=== PATIENT | female | born 1970 | race Two or more races ===

== ENCOUNTER 2017-10-19 16:59 | Emergency (ER) | payer OTHER ==
[~2017-10-19] VITALS: Ht 162.6 cm; Wt 62.6 kg
[~2017-10-19 16:59] MED LIST: ANTIVERT25 M1 PO; ATARAX25 MG PO; NA; ZYRTEC10 M3 PO
[2017-10-19] MEDS ORDERED: MEDROLPACK PO (21:52)
[2017-10-19] MEDS ORDERED: NORFLEX100MG PO (21:52)
== END 2017-10-19 22:20 | disposition home or self-care (01) ==
LOC: ER 16:59
DX: M54.89 Other dorsalgia (principal)

== ENCOUNTER 2018-02-20 10:09 | Emergency (ER) | payer OTHER ==
[~2018-02-20] VITALS: Ht 162.6 cm; Wt 63.0 kg
[~2018-02-20 10:09] MED LIST changes: +MEDROLPACK PO; +NORFLEX100MG PO
[2018-02-20] MEDS ORDERED: TAPAZOLE5 MG PO (10:40)
== END 2018-02-20 16:10 | disposition home or self-care (01) ==
LOC: ER 10:09
DX: R42 Dizziness and giddiness (principal)

== ENCOUNTER → 2023-02-03 | Emergency (ER) | payer OTHER ==
[~2023-02-03] VITALS: Ht 162.6 cm; Wt 64.9 kg
[~2023-02-03] MED LIST changes: +LIPITOR40 M1; +PLAVIX75 MG; +TAPAZOLE5 MG PO
== END | disposition left against medical advice (07) ==
LOC: ER 21:17
DX: Z53.21 Procedure and treatment not carried out due to patient leaving prior to being seen by health care provider (principal)